=== PATIENT | male | born 1960 | race Caucasian/White ===

== ENCOUNTER 2017-10-30 08:05 | Inpatient (IN) ==
[2017-10-30] MEDS ORDERED: ONDANSETRON 4 MG/2 ML VIAL IV STA (08:52)
[2017-10-30] MEDS ORDERED: HYDROmorphone 2 MG/1 ML VIAL IV STA (08:52)
[2017-10-30] MEDS ORDERED: SODIUM CHLORIDE 0.9% 1,000 ML IV STA (08:52)
[2017-10-30] MEDS ORDERED: ONDANSETRON 4 MG/2 ML VIAL ONE (09:05)
[2017-10-30] MEDS ORDERED: HYDROmorphone 2 MG/1 ML VIAL ONE (09:06)
[2017-10-30 09:15] LABS: Basophils # 0.1 10*3/uL (0.0-0.2); Basophils % 0.3 % (0.0-0.8); Hematocrit 47.4 VOL% (42.0-52.0); Hemoglobin 16.2 GM/DL (14.0-18.0); Immature Granulocytes % 0.2 %; Immature Granulocytes Absolute 0.03 #; Lymphocytes # 0.3 10*3/uL (1.4-4.0); Lymphocytes % 2.1 % (21.2-54.2); Mean Corpuscular HGB Conc 34.2 GM/DL (32-36); Mean Corpuscular Hemoglobin 31 PG (27-34); Mean Corpuscular Volume 89.8 FL (87-102); Mean Platelet Volume 8.8 FL (9.6-12.0); Monocytes # 0.4 10*3/uL (0.11-0.8); Monocytes % 2.9 % (1.7-12.7); Neutrophils # 13.6 10*3/uL (1.4-7.4); Neutrophils % 94.5 % (38.7-73.9); Platelet Count 436 T/CUMM (130-400); Red Blood Count 5.28 MC/CUMM (3.8-5.5); Red Cell Distribution Width 13.3 % (9.3-17.3); White Blood Count 14.4 T/CUMM (4-12)
[2017-10-30] MEDS ORDERED: PIPERACILLIN/TAZOBACTAM 3,375 MG in SODIUM CHLORIDE 0.9% 100 ML IV STA (09:17)
[2017-10-30 09:36] LABS: PT Patient Result 10.2 SECS
[2017-10-30 09:37] LABS: Band Neutrophils 11 % (0-10); Giant Platelets Few; Lymphocytes 2 % (20-55); Platelet Estimate Adequate; Segmented Neutrophils 82 % (50-85); Total Cells Counted 100
[2017-10-30 09:38] LABS: Hypochromasia Slight
[2017-10-30] MEDS ORDERED: PIPERACILLIN/TAZOBACTAM 3,375 MG VIAL IV ONE (10:04)
[2017-10-30] MEDS ORDERED: SUGAMMADEX 200 MG/2 ML VIAL IV ONE (11:29)
[2017-10-30 11:31] LABS: Alanine Aminotransferase 26 U/L (16-61); Albumin 3.9 G/DL (3.4-5.0); Alkaline Phosphatase 75 U/L (45-117); Aspartate Amino Transferase 32 U/L (0-37); Blood Urea Nitrogen 16 MG/DL (7-18); Calcium 9.2 MG/DL (8.5-10.1); Glucose 92 MG/DL (74-106); Osmolality,Calculated 255.2 MOS/KG (273-304); Potassium 4.6 MMOL/L (3.5-5.1); Sodium 127 MMOL/L (136-145); Total Protein 7.8 G/DL (6.4-8.3); Troponin I Only < 0.015 NG/ML (0.00-0.045)
[2017-10-30] MEDS ORDERED: MEPERIDINE 25 MG/1 ML VIAL ONE (11:49)
[2017-10-30] MEDS ORDERED: PROPOFOL 200 MG/20 ML VIAL IV ONE (11:59)
[2017-10-30] MEDS ORDERED: DESFLURANE 1 UNIT/15 MINUTE INH ONE (11:59)
[2017-10-30] MEDS ORDERED: SUCCINYLCHOLINE 200 MG/10 ML VIAL ONE (11:59)
[2017-10-30] MEDS ORDERED: MIDAZOLAM 2 MG/2 ML VIAL ONE (11:59)
[2017-10-30] MEDS ORDERED: fentaNYL 100 MCG/2 ML VIAL ONE (11:59)
[2017-10-30] MEDS ORDERED: ROCURONIUM 100 MG/10 ML VIAL IV ONE (12:00)
[2017-10-30] MEDS ORDERED: LACTATED RINGERS 1,000 ML IV ONE (12:00)
[2017-10-30 12:01] LABS: Lactic Acid 2.4 MMOL/L (0.4-2.0)
[2017-10-30] MEDS ORDERED: MEPERIDINE 25 MG/1 ML VIAL IV PRN (12:01)
[2017-10-30 12:02] LABS: Apearance,Urine Slightly Hazy (Clear); Bilirubin,Urine Negative (Negative); Blood, Urine Negative (Negative); Glucose,Urine (UA) Negative (Negative); Hyaline Casts,Urine 7 /LPF (0-3); Ketones,Urine 5 mg/dL (Negative); Mucus,Urine Few /LPF (Occasional); Nitrite,Urine Negative (Negative); Protein,Urine Negative; RBC,Urine 2 /HPF (0-4); Sperm,Urine Occasional /HPF (Negative); Squamous Epithelial Cell,Urine Occasional /HPF (0-10); Urine Color Yellow (Yellow); Urine Specific Gravity 1.035 (1.001-1.035); Urine Urobilinogen < 2.0 EU/DL (0.2-1.0); WBC,Urine 1 /HPF (0-6)
[2017-10-30] MEDS: DEXTROSE 5% LACTATED RINGERS 1,000 ML IV SCH ×2 (13:08→20:59)
[2017-10-30] MEDS: HYDROmorphone 2 MG/1 ML VIAL IV PRN ×2 (18:09→21:00)
[2017-10-30] MEDS: cefOXitin 2,000 MG in SYRINGE 1 EACH IV SCH ×2 (18:40→22:22)
[2017-10-31] MEDS: HYDROmorphone 2 MG/1 ML VIAL IV PRN ×9 (01:46→23:34)
[2017-10-31] MEDS: cefOXitin 2,000 MG in SYRINGE 1 EACH IV SCH ×3 (03:47→16:54)
[2017-10-31] MEDS: DEXTROSE 5% LACTATED RINGERS 1,000 ML IV SCH ×3 (03:47→21:24)
[2017-10-31] MEDS: ENOXAPARIN 40 MG/0.4 ML SYRINGE SUBCUT SCH (05:43)
[2017-10-31 06:14] LABS: Basophils # 0.1 10*3/uL (0.0-0.2); Basophils % 0.3 % (0.0-0.8); Eosinophils # 0.1 10*3/uL (0.0-0.87); Eosinophils % 0.5 % (0.00-10.9); Hematocrit 39.9 VOL% (42.0-52.0); Hemoglobin 13.5 GM/DL (14.0-18.0); Immature Granulocytes % 0.5 %; Immature Granulocytes Absolute 0.07 #; Lymphocytes # 0.5 10*3/uL (1.4-4.0); Lymphocytes % 3.2 % (21.2-54.2); Mean Corpuscular HGB Conc 33.8 GM/DL (32-36); Mean Corpuscular Hemoglobin 31 PG (27-34); Mean Corpuscular Volume 90.9 FL (87-102); Mean Platelet Volume 8.9 FL (9.6-12.0); Monocytes # 0.6 10*3/uL (0.11-0.8); Monocytes % 4.1 % (1.7-12.7); Neutrophils # 13.9 10*3/uL (1.4-7.4); Neutrophils % 91.4 % (38.7-73.9); Platelet Count 333 T/CUMM (130-400); Red Blood Count 4.39 MC/CUMM (3.8-5.5); Red Cell Distribution Width 13.5 % (9.3-17.3); White Blood Count 15.2 T/CUMM (4-12)
[2017-10-31 06:36] LABS: Band Neutrophils 7 % (0-10); Lymphocytes 4 % (20-55); Segmented Neutrophils 85 % (50-85); Total Cells Counted 100
[2017-10-31 06:37] LABS: Hypochromasia 1+; Microcytosis Slight
[2017-10-31 06:38] LABS: Platelet Estimate Normal
[2017-10-31 06:50] LABS: Albumin 2.7 G/DL (3.4-5.0); Bilirubin,Total 0.9 MG/DL (0.2-1.0); Calcium 8.3 MG/DL (8.5-10.1); Osmolality,Calculated 268.4 MOS/KG (273-304); Potassium 4.2 MMOL/L (3.5-5.1); Total Protein 5.9 G/DL (6.4-8.3)
[2017-10-31] MEDS ORDERED: PANTOPRAZOLE 40 MG VIAL IV SCH (09:00)
[2017-10-31] MEDS ORDERED: LISINOPRIL/HCTZ 20-12.5 MG TABLET PO SCH (09:30)
[2017-10-31] MEDS ORDERED: CETIRIZINE 10 MG TABLET PO SCH (09:30)
[2017-10-31] MEDS: hydrALAZINE 20 MG/1 ML VIAL IV PRN ×2 (10:41→19:47)
[2017-10-31] MEDS ORDERED: PHENOL 1.4% THROAT SPRAY 177 ML BOTTLE PO PRN (12:38)
[2017-10-31] MEDS: ALBUTEROL/IPRATROPIUM 3 ML NEB RESP TX SCH ×2 (12:54→19:49)
[2017-10-31] MEDS ORDERED: INFLUENZA VIRUS VACCINE 0.5 ML SYRINGE IM ONE (16:06)
[2017-10-31] MEDS ORDERED: POLYVINYL ALCOHOL 1.4% OPH SOLN 15 ML BOTTLE BOTH EYES PRN (16:15)
[2017-10-31] MEDS: FAMOTIDINE 20 MG/2 ML VIAL IV SCH (16:45)
[2017-10-31] MEDS ORDERED: MINERAL OIL/PETROLATUM OPH OINT 3.5 GM TUBE BOTH EYES SCH (21:00)
[2017-10-31] MEDS: FLUTICASONE 50 MCG NASAL SPRAY 16 GM BOTTLE BOTH NARES SCH (21:25)
[2017-10-31] MEDS: PANTOPRAZOLE 40 MG VIAL IV SCH (21:27)
[2017-11-01] MEDS: cefOXitin 2,000 MG in SYRINGE 1 EACH IV SCH ×4 (00:28→17:46)
[2017-11-01] MEDS: HYDROmorphone 2 MG/1 ML VIAL IV PRN ×7 (01:41→21:10)
[2017-11-01] MEDS: ALBUTEROL/IPRATROPIUM 3 ML NEB RESP TX SCH ×2 (02:03→07:39)
[2017-11-01] MEDS: DEXTROSE 5% LACTATED RINGERS 1,000 ML IV SCH ×3 (04:24→21:05)
[2017-11-01] MEDS: FAMOTIDINE 20 MG/2 ML VIAL IV SCH (04:25)
[2017-11-01 05:11] LABS: Basophils % 0.3 % (0.0-0.8); Eosinophils # 0.3 10*3/uL (0.0-0.87); Eosinophils % 2.5 % (0.00-10.9); Hematocrit 35.5 VOL% (42.0-52.0); Hemoglobin 11.9 GM/DL (14.0-18.0); Immature Granulocytes % 0.6 %; Immature Granulocytes Absolute 0.07 #; Lymphocytes # 0.6 10*3/uL (1.4-4.0); Mean Corpuscular HGB Conc 33.5 GM/DL (32-36); Mean Corpuscular Hemoglobin 31 PG (27-34); Mean Corpuscular Volume 91.3 FL (87-102); Mean Platelet Volume 9.5 FL (9.6-12.0); Monocytes # 0.3 10*3/uL (0.11-0.8); Monocytes % 3.1 % (1.7-12.7); Neutrophils # 9.7 10*3/uL (1.4-7.4); Neutrophils % 88.5 % (38.7-73.9); Platelet Count 265 T/CUMM (130-400); Red Blood Count 3.89 MC/CUMM (3.8-5.5); Red Cell Distribution Width 13.7 % (9.3-17.3); White Blood Count 10.9 T/CUMM (4-12)
[2017-11-01 05:44] LABS: Calcium 7.8 MG/DL (8.5-10.1); Osmolality,Calculated 268.2 MOS/KG (273-304); Potassium 3.8 MMOL/L (3.5-5.1)
[2017-11-01] MEDS: ENOXAPARIN 40 MG/0.4 ML SYRINGE SUBCUT SCH (06:08)
[2017-11-01] MEDS: PANTOPRAZOLE 40 MG VIAL IV SCH ×2 (08:18→21:03)
[2017-11-01] MEDS: FLUTICASONE 50 MCG NASAL SPRAY 16 GM BOTTLE BOTH NARES SCH ×2 (08:18→21:06)
[2017-11-01] MEDS: ONDANSETRON 4 MG/2 ML VIAL IV PRN (08:18)
[2017-11-01] MEDS: HEPARIN 5,000 UNIT/1 ML VIAL SUBCUT SCH ×2 (08:18→17:46)
[2017-11-01] MEDS ORDERED: SODIUM CHLORIDE 0.9% 1,000 ML IV ONE (09:52)
[2017-11-01 12:30] LABS: Calcium 7.8 MG/DL (8.5-10.1); Osmolality,Calculated 264.4 MOS/KG (273-304); Potassium 3.9 MMOL/L (3.5-5.1)
[2017-11-01] MEDS: ALBUTEROL 1.25 MG/3 ML NEB RESP TX SCH ×2 (14:06→19:30)
[2017-11-01] MEDS: diphenhydrAMINE 50 MG/1 ML VIAL IV SCH (18:01)
[2017-11-02] MEDS: HYDROmorphone 2 MG/1 ML VIAL IV PRN ×7 (00:11→22:08)
[2017-11-02] MEDS: HEPARIN 5,000 UNIT/1 ML VIAL SUBCUT SCH ×2 (00:13→08:21)
[2017-11-02] MEDS: diphenhydrAMINE 50 MG/1 ML VIAL IV SCH ×5 (00:16→23:32)
[2017-11-02] MEDS: ALBUTEROL 1.25 MG/3 ML NEB RESP TX SCH ×4 (01:00→20:35)
[2017-11-02 02:55] LABS: Basophils % 0.2 % (0.0-0.8); Eosinophils # 0.5 10*3/uL (0.0-0.87); Eosinophils % 5.1 % (0.00-10.9); Hematocrit 34.1 VOL% (42.0-52.0); Immature Granulocytes % 0.6 %; Immature Granulocytes Absolute 0.05 #; Lymphocytes # 0.5 10*3/uL (1.4-4.0); Lymphocytes % 5.3 % (21.2-54.2); Mean Corpuscular HGB Conc 35.2 GM/DL (32-36); Mean Corpuscular Hemoglobin 31 PG (27-34); Mean Corpuscular Volume 88.6 FL (87-102); Mean Platelet Volume 9.7 FL (9.6-12.0); Monocytes # 0.6 10*3/uL (0.11-0.8); Monocytes % 6.1 % (1.7-12.7); Neutrophils # 7.4 10*3/uL (1.4-7.4); Neutrophils % 82.7 % (38.7-73.9); Platelet Count 261 T/CUMM (130-400); Red Blood Count 3.85 MC/CUMM (3.8-5.5); Red Cell Distribution Width 13.7 % (9.3-17.3)
[2017-11-02] MEDS: ONDANSETRON 4 MG/2 ML VIAL IV PRN (04:39)
[2017-11-02] MEDS: hydrALAZINE 20 MG/1 ML VIAL IV PRN (04:40)
[2017-11-02 04:57] LABS: Calcium 7.7 MG/DL (8.5-10.1); Osmolality,Calculated 264.4 MOS/KG (273-304); Potassium 3.8 MMOL/L (3.5-5.1)
[2017-11-02] MEDS: DEXTROSE 5% LACTATED RINGERS 1,000 ML IV SCH ×2 (05:06→15:04)
[2017-11-02 06:37] LABS: Burr Cells Few; Hypochromasia Slight; Platelet Estimate Normal
[2017-11-02 06:38] LABS: Microcytosis 1+
[2017-11-02] MEDS: FLUTICASONE 50 MCG NASAL SPRAY 16 GM BOTTLE BOTH NARES SCH ×2 (08:21→21:03)
[2017-11-02] MEDS: PANTOPRAZOLE 40 MG VIAL IV SCH ×2 (08:21→21:01)
[2017-11-02] MEDS: ENOXAPARIN 40 MG/0.4 ML SYRINGE SUBCUT SCH (12:17)
[2017-11-03] MEDS: HYDROmorphone 2 MG/1 ML VIAL IV PRN ×6 (01:15→19:33)
[2017-11-03] MEDS: DEXTROSE 5% LACTATED RINGERS 1,000 ML IV SCH ×3 (01:15→21:32)
[2017-11-03 03:51] LABS: Basophils % 0.3 % (0.0-0.8); Eosinophils # 0.4 10*3/uL (0.0-0.87); Hematocrit 34.8 VOL% (42.0-52.0); Hemoglobin 12.1 GM/DL (14.0-18.0); Immature Granulocytes % 0.4 %; Immature Granulocytes Absolute 0.03 #; Lymphocytes % 13.5 % (21.2-54.2); Mean Corpuscular HGB Conc 34.8 GM/DL (32-36); Mean Corpuscular Hemoglobin 31 PG (27-34); Mean Corpuscular Volume 87.7 FL (87-102); Mean Platelet Volume 9.7 FL (9.6-12.0); Monocytes # 0.8 10*3/uL (0.11-0.8); Monocytes % 10.9 % (1.7-12.7); Neutrophils # 5.1 10*3/uL (1.4-7.4); Neutrophils % 69.9 % (38.7-73.9); Platelet Count 302 T/CUMM (130-400); Red Blood Count 3.97 MC/CUMM (3.8-5.5); Red Cell Distribution Width 13.4 % (9.3-17.3); White Blood Count 7.3 T/CUMM (4-12)
[2017-11-03 04:27] LABS: Calcium 7.9 MG/DL (8.5-10.1); Osmolality,Calculated 259.7 MOS/KG (273-304); Potassium 3.6 MMOL/L (3.5-5.1)
[2017-11-03] MEDS: ALBUTEROL 1.25 MG/3 ML NEB RESP TX SCH ×4 (05:37→20:27)
[2017-11-03] MEDS: diphenhydrAMINE 50 MG/1 ML VIAL IV SCH ×3 (05:43→17:38)
[2017-11-03] MEDS: PANTOPRAZOLE 40 MG VIAL IV SCH ×2 (09:35→21:30)
[2017-11-03] MEDS: FLUTICASONE 50 MCG NASAL SPRAY 16 GM BOTTLE BOTH NARES SCH ×2 (09:35→21:29)
[2017-11-03] MEDS: CLARITHROMYCIN 500 MG TABLET PO SCH ×2 (13:55→21:30)
[2017-11-03] MEDS: AMOXICILLIN 875 MG TABLET PO SCH ×2 (13:55→21:32)
[2017-11-03] MEDS: ENOXAPARIN 40 MG/0.4 ML SYRINGE SUBCUT SCH (14:00)
[2017-11-04] MEDS: diphenhydrAMINE 50 MG/1 ML VIAL IV SCH ×3 (01:26→13:25)
[2017-11-04] MEDS: ALBUTEROL 1.25 MG/3 ML NEB RESP TX SCH ×4 (01:44→20:09)
[2017-11-04] MEDS: hydrALAZINE 20 MG/1 ML VIAL IV PRN (07:57)
[2017-11-04] MEDS ORDERED: BUPIVACAINE MPF 0.25% /EPI 30 ML VIAL ONE (08:08)
[2017-11-04] MEDS ORDERED: LIDOCAINE 1%/EPI INJ 20 ML VIAL ONE (08:09)
[2017-11-04] MEDS: PANTOPRAZOLE 40 MG VIAL IV SCH ×2 (09:03→21:13)
[2017-11-04] MEDS ORDERED: METOPROLOL TARTRATE 5 MG/5 ML VIAL IV PRN (09:15)
[2017-11-04] MEDS ORDERED: METOPROLOL TARTRATE 5 MG/5 ML VIAL IV SCH (10:00)
[2017-11-04] MEDS: CLARITHROMYCIN 500 MG TABLET PO SCH ×2 (10:02→21:11)
[2017-11-04] MEDS: AMOXICILLIN 875 MG TABLET PO SCH ×2 (10:02→21:12)
[2017-11-04] MEDS: LISINOPRIL/HCTZ 20-12.5 MG TABLET PO SCH (10:03)
[2017-11-04] MEDS: FLUTICASONE 50 MCG NASAL SPRAY 16 GM BOTTLE BOTH NARES SCH ×2 (10:03→20:58)
[2017-11-04] MEDS: HYDROmorphone 2 MG/1 ML VIAL IV PRN (10:28)
[2017-11-04] MEDS: DEXTROSE 5% LACTATED RINGERS 1,000 ML IV SCH (13:21)
[2017-11-04] MEDS: ENOXAPARIN 40 MG/0.4 ML SYRINGE SUBCUT SCH (13:25)
[2017-11-04] MEDS: HYDROmorphone 2 MG/1 ML VIAL IM PRN ×2 (16:46→20:55)
[2017-11-04] MEDS: CETIRIZINE 10 MG TABLET PO SCH (16:52)
[2017-11-04] MEDS: SODIUM CHLORIDE 0.9% 1,000 ML IV SCH (16:52)
[2017-11-05] MEDS: ALBUTEROL 1.25 MG/3 ML NEB RESP TX SCH ×4 (00:57→19:39)
[2017-11-05] MEDS: SODIUM CHLORIDE 0.9% 1,000 ML IV SCH (05:32)
[2017-11-05 06:16] LABS: Calcium 8.1 MG/DL (8.5-10.1); Osmolality,Calculated 262.4 MOS/KG (273-304); Potassium 3.7 MMOL/L (3.5-5.1)
[2017-11-05] MEDS: NIFEdipine 10 MG CAPSULE PO PRN (07:20)
[2017-11-05] MEDS: PANTOPRAZOLE 40 MG VIAL IV SCH ×2 (09:37→21:07)
[2017-11-05] MEDS: CLARITHROMYCIN 500 MG TABLET PO SCH ×2 (09:37→21:07)
[2017-11-05] MEDS: LISINOPRIL/HCTZ 20-12.5 MG TABLET PO SCH (09:37)
[2017-11-05] MEDS: AMOXICILLIN 875 MG TABLET PO SCH ×2 (09:38→21:07)
[2017-11-05] MEDS: CETIRIZINE 10 MG TABLET PO SCH (09:38)
[2017-11-05] MEDS: FLUTICASONE 50 MCG NASAL SPRAY 16 GM BOTTLE BOTH NARES SCH ×2 (09:38→21:07)
[2017-11-05] MEDS: ENOXAPARIN 40 MG/0.4 ML SYRINGE SUBCUT SCH (13:56)
[2017-11-06] MEDS: ALBUTEROL 1.25 MG/3 ML NEB RESP TX SCH ×4 (03:04→19:50)
[2017-11-06 04:03] LABS: Calcium 7.9 MG/DL (8.5-10.1)
[2017-11-06 04:04] LABS: Osmolality,Calculated 264.4 MOS/KG (273-304); Potassium 3.1 MMOL/L (3.5-5.1)
[2017-11-06] MEDS ORDERED: FUROSEMIDE 40 MG/4 ML VIAL IV SCH (08:00)
[2017-11-06] MEDS: POTASSIUM CHLORIDE 20 MEQ TABLET PO SCH ×4 (08:57→21:09)
[2017-11-06] MEDS: LISINOPRIL/HCTZ 20-12.5 MG TABLET PO SCH (08:58)
[2017-11-06] MEDS: PANTOPRAZOLE 40 MG TABLET PO SCH ×2 (08:58→21:09)
[2017-11-06] MEDS: AMOXICILLIN 875 MG TABLET PO SCH ×2 (08:58→21:09)
[2017-11-06] MEDS: CARVEDILOL 12.5 MG TABLET PO SCH ×2 (08:58→21:09)
[2017-11-06] MEDS: CETIRIZINE 10 MG TABLET PO SCH (08:58)
[2017-11-06] MEDS: FLUTICASONE 50 MCG NASAL SPRAY 16 GM BOTTLE BOTH NARES SCH ×2 (08:58→21:13)
[2017-11-06] MEDS: CLARITHROMYCIN 500 MG TABLET PO SCH ×2 (08:58→21:09)
[2017-11-06] MEDS: NIFEdipine 10 MG CAPSULE PO PRN (08:58)
[2017-11-06] MEDS ORDERED: cloNIDine 0.1 MG TABLET PO SCH (09:00)
[2017-11-06] MEDS: ENOXAPARIN 40 MG/0.4 ML SYRINGE SUBCUT SCH (12:29)
[2017-11-07] MEDS: ALBUTEROL 1.25 MG/3 ML NEB RESP TX SCH ×2 (01:05→09:14)
[2017-11-07 05:40] LABS: Basophils % 0.5 % (0.0-0.8); Eosinophils # 0.7 10*3/uL (0.0-0.87); Eosinophils % 7.7 % (0.00-10.9); Hematocrit 33.7 VOL% (42.0-52.0); Immature Granulocytes % 0.9 %; Immature Granulocytes Absolute 0.08 #; Lymphocytes # 1.6 10*3/uL (1.4-4.0); Lymphocytes % 17.9 % (21.2-54.2); Mean Corpuscular HGB Conc 35.6 GM/DL (32-36); Mean Corpuscular Hemoglobin 30 PG (27-34); Mean Corpuscular Volume 85.1 FL (87-102); Mean Platelet Volume 9.8 FL (9.6-12.0); Monocytes # 0.7 10*3/uL (0.11-0.8); Monocytes % 8.3 % (1.7-12.7); Neutrophils # 5.7 10*3/uL (1.4-7.4); Neutrophils % 64.7 % (38.7-73.9); Platelet Count 447 T/CUMM (130-400); Red Blood Count 3.96 MC/CUMM (3.8-5.5); Red Cell Distribution Width 13.2 % (9.3-17.3); White Blood Count 8.7 T/CUMM (4-12)
[2017-11-07 06:17] LABS: Calcium 7.9 MG/DL (8.5-10.1); Osmolality,Calculated 261.5 MOS/KG (273-304); Potassium 3.8 MMOL/L (3.5-5.1)
[2017-11-07 07:53] LABS: Microcytosis Slight
[2017-11-07 07:55] LABS: Hypochromasia 1+; Platelet Estimate Increased; Target Cells Slight
[2017-11-07] MEDS: CLARITHROMYCIN 500 MG TABLET PO SCH (09:00)
[2017-11-07] MEDS: CARVEDILOL 12.5 MG TABLET PO SCH (09:00)
[2017-11-07] MEDS: PANTOPRAZOLE 40 MG TABLET PO SCH (09:00)
[2017-11-07] MEDS: LISINOPRIL/HCTZ 20-12.5 MG TABLET PO SCH (09:00)
[2017-11-07] MEDS: CETIRIZINE 10 MG TABLET PO SCH (09:00)
[2017-11-07] MEDS: AMOXICILLIN 875 MG TABLET PO SCH (09:00)
[2017-11-07] MEDS: FLUTICASONE 50 MCG NASAL SPRAY 16 GM BOTTLE BOTH NARES SCH (09:00)
[2017-11-07 12:54] VITALS: BP 158/93
[2017-11-07] MEDS: ENOXAPARIN 40 MG/0.4 ML SYRINGE SUBCUT SCH (13:06)
[2017-11-11] MEDS ORDERED: cloNIDine 0.3 MG/24 HR PATCH TRANSDERM SCH (09:00)
== END 2017-11-07 12:50 | disposition home or self-care (01) | DRG 853 ==
LOC: N.ED 08:05 → N.OR 10:24 → N.ICU 11:41 → N.3E 10-31 12:18
PROVIDERS: ADMIT Surgery; ATTEND Surgery